=== PATIENT | female | born 1995 | race Caucasian/White ===

== ENCOUNTER 2018-06-26 22:57 | Inpatient (IN) ==
[2018-06-26] MEDS ORDERED: NS 1,000 ML IV ONE (23:09)
[2018-06-26] MEDS ORDERED: MORPHINE IV ONE (23:09)
[2018-06-26] MEDS ORDERED: ZOFRAN IV ONE (23:09)
[2018-06-26 23:43] LABS: BASO# 0.02 X1000 (0.0-0.2); BASO% 0.1 % (0.0-0.8); EOS# 0.04 X1000 (0.0-0.7); EOS% 0.2 % (0.0-10.0); HEMATOCRIT 34.9 % (37.0-47.0); HEMOGLOBIN 11.5 g/dL (12.0-16.0); LYMPH# 3.17 X1000 (1.2-3.4); LYMPH% 14.8 % (20.5-51.1); MCV 81.9 FL (81-99); MONO# 1.09 X1000 (0.11-0.59); MONO% 5.1 % (1.7-9.3); MPV 11.8 FL (7.4-10.4); NEUT# 17.16 X1000 (1.4-6.5); NEUT% 79.8 % (42.2-75.2); PLT 368 X1000 (130-400); RBC 4.26 XMIL (4.2-5.4); WBC 21.48 X1000 (4.8-10.8)
[2018-06-26 23:59] LABS: AGAP 16; ALB/GLOB RATIO 1.5; ALBUMIN 4.5 g/dL (3.5-5.0); ALKALINE PHOSPHATASE 68 U/L (32-104); BUN 20 mg/dL (8-22); CHLORIDE 101 mmol/L (98-107); COSMO 278; ESTIMATED GFR > 60; GLUCOSE 155 mg/dL (70-104); GOT 18 U/L (10-30); GPT 11 U/L (10-36); LIPASE 14 U/L (13-60); POTASSIUM 3.7 mmol/L (3.5-5.1); SODIUM 136 mmol/L (136-145); TCO2 19 mmol/L (25-35); TOTAL BILIRUBIN 0.73 mg/dL (0.20-1.00); TOTAL PROTEIN 7.6 g/dL (6.3-8.3)
[2018-06-27 00:06] LABS: URINE SOURCE CLEAN CATCH
[2018-06-27 00:14] LABS: BILIRUBIN URINE SMALL (NEGATIVE); BLOOD URINE NEGATIVE (NEGATIVE); COLOR YELLOW; GLUCOSE URINE NEGATIVE (NEGATIVE); KETONE URINE 20 mg/dL (NEGATIVE); LEUKOCYTES URINE LARGE (NEGATIVE); NITRITE URINE NEGATIVE (NEGATIVE); PROTEIN URINE 100 mg/dL (NEGATIVE); SP GRAVITY URINE > 1.050; TURBIDITY URINE HAZY (CLEAR); UR EPITHELIAL CELLS >10 /HPF (<10); URINE BACTERIA 2+ /HPF; UROBILINOGEN URINE 2 mg/dL (NORMAL)
[2018-06-27] MEDS ORDERED: MORPHINE IV ONE (01:26)
--- NOTE | 2018-06-27 02:30 | PROVIDER DOCUMENTATION ---
This chart was entered by Diana Byers Scribe, acting as scribe for Khai Rg MD. HPI-Abdominal Pain/GI Problem - General Chief Complaint: Abdominal Pain Stated Complaint: abdominal pain Time Seen by Provider: 06/26/18 23:01 Source: patient Allergies/Adverse Reactions: Patient Allergies Allergy/AdvReac Type Severity Reaction Status Date / Time No Known Allergies Allergy Verified 06/26/18 23:19 Home Medications: Home Medication List Medication Instructions Recorded Confirmed Last Taken Type Phentermine HCl [Adipex-P] 37.5 mg PO 06/26/18 06/26/18 15:00 History - History of Present Illness-ABD Nature of Presenting Problems: Pt is 22/F presenting to ED w/ lower abd pain that started last night and has gotten worse throughout today. She sts that she took advil and midol w/ little relief around 5:30 today. Pt sts that she has felt nauseous but had not vomited. Pt is in a significant amount of pain Abdominal Pain Onset Location: reports: periumbilical Pain Radiation: reports: back (R back) Quality of Pain: reports: aching Severity in ED: reports: severe Onset/Duration: reports: this evening Timing: reports: still present Activities at Onset: reports: none Exposure to sick contacts?: No Modifying Factors: improves with: nothing Associated Symptoms: reports: nausea. denies: cough, dizziness, fever/chills, vomiting Bruising or Bleeding Gums?: No Similar Symptoms Previously?: No Recently seen or treated by another doctor?: No Review of Systems - Adult - REVIEW OF SYSTEMS - ADULT Constitutional: denies: chills, fever Eyes: reports: no symptoms reported Ears, Nose, Mouth & Throat: reports: no symptoms reported Cardiovascular: reports: no symptoms reported. denies: chest pain Respiratory: reports: no symptoms reported. denies: cough Gastrointestinal: reports: abdominal pain, nausea. denies: diarrhea, vomiting Genitourinary: reports: no symptoms reported. denies: dysuria, flank pain, frequent UTI's Musculoskeletal: reports: back pain Integumentary: reports: no symptoms reported Neurological: reports: no symptoms reported. denies: dizziness/vertigo, headache/migraines Endocrine: reports: no symptoms reported Hematologic/Lymphatic: reports: no symptoms reported Allergic/Immunologic: reports: no symptoms reported All Other Systems: Reviewed and Negative Past History - Adult - PAST MEDICAL HISTORY-ADULT Review of Records: reports: Old Records Reviewed, Nursing Assessment Review, Medications Reviewed, Social history reviewed & non-contributory. Major Childhood Illnesses: reports: denies history Cardiovascular: reports: denies history Respiratory: reports: asthma Gastrointestinal: reports: denies history Obstetrical/Gynecological: reports: denies history Genitourinary: reports: denies history Musculoskeletal: reports: denies history Neurological: reports: denies history Psychiatric: reports: denies history Endocrine/Immune: reports: denies history Other Conditions: reports: denies history - PRIOR SURGERIES/PROCEDURES Surgical/Procedure History: reports: none - IMMUNIZATION STATUS Childhood Immunizations: UTD - SOCIAL HISTORY Smoking: denies, non-smoker Substance Use: none/never Alcohol Use Frequency: occasionally Living Situation: family Physical Exam-General - PHYSICAL EXAM-ADULT Initial Vital Signs Reviewed: Yes - CONSTITUTIONAL General Appearance: appears well, alert, moderate distress, anxious - EYES Eyes: PERRL/EOMI, pink conjunctivae - HEAD, EARS, NOSE, MOUTH & THROAT HENMT: normocephalic/atraumatic, moist mucous membranes, normal ENT inspection, TMs normal, pharynx normal - NECK Neck: non-tender, full range of motion, supple, normal inspection - RESPIRATORY Respiratory: lungs clear - CARDIOVASCULAR Cardiovascular: normal peripheral pulses, no edema, no gallop, no JVD, no murmur , tachycardia (143) - GASTROINTESTINAL (ABDOMEN) Abdominal Exam: normal bowel sounds, soft, guarding, rebound - LYMPHATIC Lymphatic: no adenopathy - MUSCULOSKELETAL Back Exam: normal inspection, no CVA tenderness, no vertebral tenderness Extremity: normal range of motion, non-tender, normal gait, normal inspection - SKIN Integumentary: normal color, warm/dry - NEUROLOGIC Neurologic: grossly normal - PSYCHIATRIC Psych/Mental Status: normal mood/affect, normal thought content, normal thought process, oriented x 3 Progress - PLAN OF CARE/RESULTS Progress/Plan/Lab Results: Orders Category Date Time Status ED: Urine Bedside ORDERED Care 06/26/18 23:[address] ABD/PELVIS W/IV CONT ONLY [CT] Stat Exams 06/26/18 23:09 Ordered CBC WITH ELECTRONIC DIFF [HEME] Stat Lab 06/26/18 23:08 Uncollected COMPREHENSIVE METABOLIC PANEL [CHEM] Stat Lab 06/26/18 23:08 Uncollected LACTATE, PLASMA [CHEM] Stat Lab 06/26/18 23:08 Uncollected LIPASE [CHEM] Stat Lab 06/26/18 23:08 Uncollected URINALYSIS [URINALYSIS] Stat Lab 06/26/18 23:08 Uncollected 0.9% Sodium Chloride Inj [Ns] 1,000 ml Med 06/26/18 23:09 Active IV 999 mls/hr Morphine Med 06/26/18 23:09 Discontinued 4 mg IV NOW ONE Ondansetron [Zofran] Med 06/26/18 23:09 Discontinued 4 mg IV NOW ONE EKG [EKG] Stat Ther 06/26/18 23:[address] shows hemoperitenium, spoke with OB, will admit to there service and get US Result Diagrams: 06/26/18 23:30 06/26/18 23:30 - EKG 1 Time of EKG reading by physician:: 23:03 EKG Read and Signed by:: Khai Rg EKG Interpretation (*Must complete 3 of following elements*): Abnormal (sinus tachycardia, Possible Left atrial enlargement, Rightward axis, Nonspecific ST abnormality, Abnormal ECG) Rate: 143 Rhythm: sinus tachycardia - CT/MRI 1 CT Study: Abdomen, Pelvis Impression: Abnormal (Ascites and pelvic hemoperitoneum of uncertain etiology. Pneumoperitoneum obscures the borders of the uterus and ovaries.) - CONSULTS/PCP/HOSPITALIST Notification #1 *Consult/PCP/Hospitalist*: Julian Time Discussed: 01:13 Reason/Comments: will see in ED Ultrasound requested Consult Disposition: Will see in ED Departure - Departure Date of Disposition Decision: 06/27/18 Time of Disposition Decision: 02:29 DIAGNOSIS: Hemoperitoneum Disposition: ADMITTED INPATIENT 09 Certified Medical Emergency: Emergent Condition: Stable Referrals and Follow-Ups: None,PCP [Primary Care Provider] - - Critical Care Note This patient required my direct & personal management of CC.: No Attestation - Physician/ ESTRADA Attestation Patient care was provided by Advanced Practice Provider:: No The physician spent face to face time with patient:: Yes Advanced Practice Provider documentation review:: Supervising physician onsite and consulted in the evaluation and care of this patient. The physician did have a face to face encounter with the patient. This chart was documented by the indicated scribe, (Diana Byers, Scribe) and accurately reflects the services I performed and decisions made by me, Khai Rg MD, as attested by the provider's signature.
[2018-06-27] MEDS ORDERED: SODIUM CHLORIDE 0.9% INJ PRN ×2 (02:54→04:33)
[2018-06-27] MEDS ORDERED: MORPHINE IV PRN ×2 (02:54→04:33)
[2018-06-27] MEDS ORDERED: PHENERGAN IV PRN ×2 (02:54→04:33)
[2018-06-27 03:06] LABS: BASO# 0.02 X1000 (0.0-0.2); BASO% 0.1 % (0.0-0.8); HEMATOCRIT 32.2 % (37.0-47.0); HEMOGLOBIN 10.5 g/dL (12.0-16.0); IMM GRAN# 0.04 X1000 (0.0-0.04); IMM GRAN% 0.2 % (0.0-0.5); LYMPH# 1.95 X1000 (1.2-3.4); LYMPH% 11.7 % (20.5-51.1); MCH 26.4 PG (27-31); MCHC 32.6 g/dL (33-37); MCV 80.9 FL (81-99); MONO# 0.83 X1000 (0.11-0.59); MPV 12.2 FL (7.4-10.4); NEUT# 13.81 X1000 (1.4-6.5); PLT 228 X1000 (130-400); RBC 3.98 XMIL (4.2-5.4); RDW 12.9 % (11.5-14.5); WBC 16.65 X1000 (4.8-10.8)
[2018-06-27] MEDS ORDERED: NS 1,000 ML IV ONE (03:44)
[2018-06-27] MEDS ORDERED: ROCEPHIN 1 GM in NS 50 ML IV SCH (04:12)
[2018-06-27] MEDS ORDERED: NS 1,000 ML IV SCH (04:45)
--- NOTE | 2018-06-27 05:24 | HISTORY AND PHYSICAL ---
HISTORY OF PRESENT ILLNESS: This is a 22-year-old, G0, who presents to the ER with lower pelvic pain that has been occurring since 4:30 a.m. on 06/26/2018. Onset was after patient and her partner were having sex. Pain worsened acutely last evening around 9 p.m. when she noted that the pain worsened to an 8 out of 10 in severity. Noted that the pain worsened when riding in the car upon hitting bumps. Denies any associated symptoms of nausea, vomiting, fever, chills, constipation or diarrhea. The patient notes that pain is worsened upon lying down flat and states that she has pain radiating to the right shoulder. REVIEW OF SYSTEMS: Negative except for the positive pertinent that were aforementioned in the HPI. OBSTETRICAL HISTORY: Never . GYNECOLOGIC HISTORY: LMP June 15-. Periods are normally regular, lasting 5 days. Prior to last week, patient was abstinent or 3 months with her partner deployed [employer]. Denies any history of any sexually transmitted infections. PAST MEDICAL HISTORY: The patient states she has had mild Arnold-Chiari malformation. Also notes a history of mild asthma, not requiring hospitalization and requiring the use of albuterol only a handful times. SURGICAL HISTORY: Oral surgery. SOCIAL HISTORY: Denies tobacco, alcohol, illicit drug use. ALLERGIES: No known drug allergies. MEDICATIONS: Adipex. PHYSICAL EXAMINATION: VITAL SIGNS: On presentation, temperature 98.5 degrees, pulse rate 145, respiratory rate 24, blood pressure 124/101, O2 saturation on room air. On evaluation, repeat vital signs at this time, the heart rate 95, respiratory rate 17. GENERAL: Patient appears uncomfortable, especially with movement. HEENT: Head normocephalic and atraumatic. HEART: Tachycardic, regular rhythm. No murmurs, rubs, gallops or clicks. LUNGS: Clear to auscultation bilaterally. No adventitious breath sounds. ABDOMEN: The abdomen soft, tender to palpation, worse on the left side than the right side. Normoactive bowel sounds. GENITOURINARY: Pelvis: No pain with manipulation of the ultrasonography vaginal probe. EXTREMITIES: No cyanosis, no edema. Negative Homans sign. LAB: CBC: White blood count 21.4, hemoglobin 11.5, hematocrit 34.9, platelets 368,000. Chemistry, creatinine 1.0. Urine test is negative. Serum less than 1. Urinalysis shows ketones, 10 to 20 white blood cells, urine red blood cells 10 to 20 and urine bacteria. A repeat lab CBC 3 hours later, repeat CBC, white blood count 16.6, hemoglobin 10.5, hematocrit 32.2, and platelet count 228,000. IMAGING: CT abdomen and pelvis showed what appears to be acute hemoperitoneum in the pelvis of uncertain etiology. Ultrasound showed heterogeneous debris measuring approximately 12 x 5 x 6 cm. ASSESSMENT: Ms. Castellanos is a 22-year-old, 0, who presents with pelvic pain secondary to hemoperitoneum. Differential diagnosis includes ruptured hemorrhagic cyst versus uterine injury. PLAN: Admit patient to observation for serial abdominal exams, close monitoring of vital signs and hemoglobin and hematocrit. We will repeat CBC 4 hours from the last CBC. CBC currently stable and vital signs stable. RN to alert physician in case of any signs of deterioration, decreased urine output, lowering blood pressure or increasing tachycardia. Morphine p.r.n. for pain control Consent signed with the patient for emergency surgery in case of acute deterioration. We will keep patient NPO for now. cc: Megan Jordan MD MTD
[2018-06-27] MEDS ORDERED: PRILOSEC PO SCH (07:00)
[2018-06-27 07:46] LABS: BASO# 0.01 X1000 (0.0-0.2); BASO% 0.1 % (0.0-0.8); EOS# 0.01 X1000 (0.0-0.7); EOS% 0.1 % (0.0-10.0); HEMATOCRIT 31.2 % (37.0-47.0); HEMOGLOBIN 9.9 g/dL (12.0-16.0); IMM GRAN# 0.03 X1000 (0.0-0.04); IMM GRAN% 0.2 % (0.0-0.5); LYMPH# 1.93 X1000 (1.2-3.4); LYMPH% 15.1 % (20.5-51.1); MCH 26.1 PG (27-31); MCHC 31.7 g/dL (33-37); MCV 82.3 FL (81-99); MONO# 0.77 X1000 (0.11-0.59); MPV 11.4 FL (7.4-10.4); NEUT# 10.05 X1000 (1.4-6.5); NEUT% 78.5 % (42.2-75.2); PLT 267 X1000 (130-400); RBC 3.79 XMIL (4.2-5.4); RDW 13.2 % (11.5-14.5)
--- NOTE | 2018-06-27 08:20 | Diag Imaging Result Doc PS360 ---
US TRANSVAGINAL NON-OB - 06/27/2018 INDICATION: hemoperitenium TECHNIQUE: COMPARISON: CT abdomen pelvis from earlier 06/27/2018 FINDINGS: There is extensive echogenic material most compatible with blood clot filling the pelvis. This measures 12.3 x 5.1 x 6.6 cm. There is also trace free fluid. The uterus measures 8.6 x 4.3 x 3.9 cm. Endometrial stripe thickness is 1.1 cm. No fluid in the endometrium. The ovaries are obscured. IMPRESSION: Large heterogeneous echogenic collection in the pelvis compatible with a large blood clot. EQUIPMENT MAINTENANCE ENGINEER consultation recommended. Electronically signed by Ibrahima Villarreal 06/27/2018 8:18 AM
--- NOTE | 2018-06-27 08:30 | Diag Imaging Result Doc PS360 ---
CT ABD/PELVIS W/IV CONT ONLY - 06/26/2018 INDICATION: colitis COMPARISON: None FINDINGS: The lung bases are clear and the heart size is normal. There is moderate abdominal and pelvic free fluid. The pelvis is filled with indistinct, heterogeneous hyperdense material. This measures about 11.5 x 9.4 cm. This encompasses the uterus and both ovaries. No bowel obstruction or free air. No active contrast extravasation. Abdominal organs are all normal. Bones are intact. IMPRESSION: Hyperdense collection all throughout the pelvis encompassing the reproductive organs. Most compatible with a large hematoma. Small to moderate abdominal and pelvic free fluid. GLAZE GRINDER consultation recommended. This exam was performed using automated exposure control, adjustment of mA or kV according to patient size, and/or use of iterative reconstruction technique Electronically signed by Ibrahima Villarreal 06/27/2018 8:28 AM
--- NOTE | 2018-06-27 09:18 | OB/GYN PROGRESS NOTE ---
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 Progress Note: Vital Signs - 24 hr 06/26/18 23:04 06/26/18 23:10 06/26/18 23:33 Temperature 98.5 F Pulse Rate 145 H 145 H 137 H Respiratory Rate 24 29 H 23 Blood Pressure 124/101 124/101 118/108 O2 Sat by Pulse Oximetry 100 100 99 06/26/18 23:50 06/27/18 00:01 06/27/18 00:31 Temperature Pulse Rate 134 H 121 H 118 H Respiratory Rate 18 18 23 Blood Pressure 124/94 118/100 115/82 O2 Sat by Pulse Oximetry 100 99 100 06/27/18 01:01 06/27/18 01:31 06/27/18 02:00 Temperature Pulse Rate 114 H 103 H 95 H Respiratory Rate 19 15 17 Blood Pressure 126/78 120/98 O2 Sat by Pulse Oximetry 100 100 96 06/27/18 02:01 06/27/18 02:10 06/27/18 04:21 Temperature 98.7 F Pulse Rate 100 H 109 H 81 Respiratory Rate 20 21 20 Blood Pressure 123/88 124/80 O2 Sat by Pulse Oximetry 99 97 99 06/27/18 05:00 06/27/18 06:00 06/27/18 07:00 Temperature Pulse Rate 85 89 79 Respiratory Rate Blood Pressure 127/74 123/74 125/82 O2 Sat by Pulse Oximetry 100 100 99 06/27/18 08:00 Temperature Pulse Rate 100 H Respiratory Rate Blood Pressure 127/77 O2 Sat by Pulse Oximetry 100 Bedside Urine ED: Urine Bedside Start: 06/26/18 23:08 Freq: ORDERED Status: Complete Protocol: Activity Type Activity Date Activity User E-Sign Co-Sign Detail Recorded Client Recorded Date Recorded By Document 06/26/18 23:53 [id number] 06/26/18 23:53 [id number] Edit Status 06/27/18 04:12 CRREESE Active=>Complete [id number] 06/27/18 04:12 [id number] 06/26/18 23:53 Point of Care [Bedside Point of Care] -Lot # [id number] - Results Negative -Control Line Visible? Yes Laboratory Results - last 24 hr 06/26/18 06/26/18 06/26/18 23:25 23:30 23:30 WBC 21.48 H RBC 4.26 Hgb 11.5 L Hct 34.9 L MCV 81.9 MCH 27.0 MCHC 33.0 RDW Std Deviation 13.0 Plt Count 368 MPV 11.8 H Immature Gran % (Auto) Neut % (Auto) 79.8 H Lymph % (Auto) 14.8 L Bennett % (Auto) 5.1 Eos % (Auto) 0.2 Baso % (Auto) 0.1 Immature Gran # (Auto) Neut # (Auto) 17.16 H Lymph # (Auto) 3.17 Bennett # (Auto) 1.09 H Eos # (Auto) 0.04 Baso # (Auto) 0.02 Sodium 136 Potassium 3.7 Chloride 101 Carbon Dioxide 19 L Anion Gap 16 BUN 20 Creatinine 1.0 H Estimated GFR/1.73 m2 > 60 BUN/Creatinine Ratio 20 Glucose 155 H Calculated Osmolality 278 Calcium 9.0 Total Bilirubin 0.73 AST 18 ALT 11 Alkaline Phosphatase 68 Total Protein 7.6 Albumin 4.5 Globulin 3.1 Albumin/Globulin Ratio 1.5 Lipase 14 Plasma Lactate Serum , Qual NEGATIVE Ser , Semi-Qnt Urine Source Urine Color Urine Turbidity Urine pH Ur Specific [place] Urine Protein Ur Glucose (Stick) Ur Ketones (Stick) Urine Blood Urine Nitrite Urine Bilirubin Urobilinogen Dipstick Urine Leukocytes Urine WBC (Auto) Urine RBC (Auto) U Epithel Cells (Auto) Urine Bacteria (Auto) Blood Type Antibody Screen 06/26/18 06/26/18 06/26/18 23:30 23:45 23:47 WBC RBC Hgb Hct MCV MCH MCHC RDW Std Deviation Plt Count MPV Immature Gran % (Auto) Neut % (Auto) Lymph % (Auto) Bennett % (Auto) Eos % (Auto) Baso % (Auto) Immature Gran # (Auto) Neut # (Auto) Lymph # (Auto) Bennett # (Auto) Eos # (Auto) Baso # (Auto) Sodium Potassium Chloride Carbon Dioxide Anion Gap BUN Creatinine Estimated GFR/1.73 m2 BUN/Creatinine Ratio Glucose Calculated Osmolality Calcium Total Bilirubin AST ALT Alkaline Phosphatase Total Protein Albumin Globulin Albumin/Globulin Ratio Lipase Plasma Lactate 4.1 H Serum , Qual Ser , Semi-Qnt < 1.0 Urine Source CLEAN CATCH Urine Color YELLOW Urine Turbidity HAZY Urine pH 6.0 Ur Specific [place] > 1.050 Urine Protein 100 A Ur Glucose (Stick) NEGATIVE Ur Ketones (Stick) 20 A Urine Blood NEGATIVE Urine Nitrite NEGATIVE Urine Bilirubin SMALL A Urobilinogen Dipstick 2 A Urine Leukocytes LARGE A Urine WBC (Auto) 10-20 A Urine RBC (Auto) 10-20 A U Epithel Cells (Auto) >10 A Urine Bacteria (Auto) 2+ Blood Type Antibody Screen 06/27/18 06/27/18 06/27/18 02:25 02:25 06:45 WBC 16.65 H 12.80 H RBC 3.98 L 3.79 L Hgb 10.5 L 9.9 L Hct 32.2 L 31.2 L MCV 80.9 L 82.3 MCH 26.4 L 26.1 L MCHC 32.6 L 31.7 L RDW Std Deviation 12.9 13.2 Plt Count 228 D 267 MPV 12.2 H 11.4 H Immature Gran % (Auto) 0.2 0.2 Neut % (Auto) 83.0 H 78.5 H Lymph % (Auto) 11.7 L 15.1 L Bennett % (Auto) 5.0 6.0 Eos % (Auto) 0.0 0.1 Baso % (Auto) 0.1 0.1 Immature Gran # (Auto) 0.04 0.03 Neut # (Auto) 13.81 H 10.05 H Lymph # (Auto) 1.95 1.93 Bennett # (Auto) 0.83 H 0.77 H Eos # (Auto) 0.00 0.01 Baso # (Auto) 0.02 0.01 Sodium Potassium Chloride Carbon Dioxide Anion Gap BUN Creatinine Estimated GFR/1.73 m2 BUN/Creatinine Ratio Glucose Calculated Osmolality Calcium Total Bilirubin AST ALT Alkaline Phosphatase Total Protein Albumin Globulin Albumin/Globulin Ratio Lipase Plasma Lactate Serum , Qual Ser , Semi-Qnt Urine Source Urine Color Urine Turbidity Urine pH Ur Specific [place] Urine Protein Ur Glucose (Stick) Ur Ketones (Stick) Urine Blood Urine Nitrite Urine Bilirubin Urobilinogen Dipstick Urine Leukocytes Urine WBC (Auto) Urine RBC (Auto) U Epithel Cells (Auto) Urine Bacteria (Auto) Blood Type A NEGATIVE Antibody Screen NEGATIVE 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 She has not had any Morphine since transfer from the ER. Reported nausea around 0530 and received Promethazine with improvement of her symptoms. Vital Signs: Selected Entries 06/27/18 05:00 06/27/18 06:00 06/27/18 07:00 Pulse Rate 85 89 79 Blood Pressure 127/74 123/74 125/82 O2 Sat by Pulse Oximetry 100 99 Mean Arterial Pressure 91 06/27/18 08:00 Pulse Rate 100 H Blood Pressure 127/77 O2 Sat by Pulse Oximetry 100 Mean Arterial Pressure GEN: NAD, alert, cooperative Heart: Slightly tachycardic, normal rhythm Lungs: CTAB Abdomen: Soft, normoactive bowel sounds, slightly tender to deep palpation of lower abdomen Extremities: No cyanosis, NTTP 06/26/18 06/26/18 06/26/18 23:30 23:30 23:47 WBC 21.48 H Hgb 11.5 L Hct 34.9 L Plt Count 368 Sodium 136 Carbon Dioxide 19 L Creatinine 1.0 H Urine Protein 100 A Ur Ketones (Stick) 20 A Urine Bilirubin SMALL A Urobilinogen Dipstick 2 A Urine Leukocytes LARGE A Urine WBC (Auto) 10-20 A Urine RBC (Auto) 10-20 A U Epithel Cells (Auto) >10 A Urine Bacteria (Auto) 2+ 06/27/18 06/27/18 02:25 06:45 WBC 16.65 H 12.80 H Hgb 10.5 L 9.9 L Hct 32.2 L 31.2 L Plt Count 228 D 267 Sodium Carbon Dioxide Creatinine Urine Protein Ur Ketones (Stick) Urine Bilirubin Urobilinogen Dipstick Urine Leukocytes Urine WBC (Auto) Urine RBC (Auto) U Epithel Cells (Auto) Urine Bacteria (Auto) 22yo G0 admitted with hemoperitoneum, pelvic pain, leukocytosis, UTI mild anemia 1. Hemoperitoneum, pelvic pain, mild anemia - VSS - Discussed with patient slight drop in H&H on third CBC (likely secondary to hemodilution as both WBC and platelets have also dropped) and how this in conjunction with stable vital signs and decreased pain indicate stability in hemoperitoneum; however, I discussed with patient how blood clot will persist for several weeks and cause peritoneal irritation and pain and proceeding to the OR to clear out clot and ensure that bleeding has stopped is also an alternative treatment. Due to the risks associated with surgery and she feels she has clinically has improved, at this time she prefers observation. She will decline pain medications to see if her pain is tolerable without them, and we will revisit her symptoms in 6 hours. - Repeat CBC at 1400 - Will also repeat pelvic ultrasound to ensure hemoperitoneum is stable - Continue clear liquid diet 2. Leukocytosis, UTI - S/p Rocephin x 1 dose - Will initiate Macrobid x 3 days on tomorrow
[2018-06-27 13:43] LABS: BASO# 0.01 X1000 (0.0-0.2); BASO% 0.1 % (0.0-0.8); EOS# 0.05 X1000 (0.0-0.7); EOS% 0.6 % (0.0-10.0); HEMATOCRIT 25.7 % (37.0-47.0); HEMOGLOBIN 8.1 g/dL (12.0-16.0); LYMPH# 2.69 X1000 (1.2-3.4); LYMPH% 32.2 % (20.5-51.1); MCH 26.9 PG (27-31); MCHC 31.5 g/dL (33-37); MCV 85.4 FL (81-99); MONO# 0.71 X1000 (0.11-0.59); MONO% 8.5 % (1.7-9.3); MPV 11.1 FL (7.4-10.4); NEUT# 4.89 X1000 (1.4-6.5); NEUT% 58.6 % (42.2-75.2); PLT 208 X1000 (130-400); RBC 3.01 XMIL (4.2-5.4); RDW 13.1 % (11.5-14.5); WBC 8.35 X1000 (4.8-10.8)
--- NOTE | 2018-06-27 14:51 | OB/GYN PROGRESS NOTE ---
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 Progress Note: Vital Signs - 24 hr 06/26/18 23:04 06/26/18 23:10 06/26/18 23:33 Temperature 98.5 F Pulse Rate 145 H 145 H 137 H Respiratory Rate 24 29 H 23 Blood Pressure 124/101 124/101 118/108 O2 Sat by Pulse Oximetry 100 100 99 06/26/18 23:50 06/27/18 00:01 06/27/18 00:31 Temperature Pulse Rate 134 H 121 H 118 H Respiratory Rate 18 18 23 Blood Pressure 124/94 118/100 115/82 O2 Sat by Pulse Oximetry 100 99 100 06/27/18 01:01 06/27/18 01:31 06/27/18 02:00 Temperature Pulse Rate 114 H 103 H 95 H Respiratory Rate 19 15 17 Blood Pressure 126/78 120/98 O2 Sat by Pulse Oximetry 100 100 96 06/27/18 02:01 06/27/18 02:10 06/27/18 04:21 Temperature 98.7 F Pulse Rate 100 H 109 H 81 Respiratory Rate 20 21 20 Blood Pressure 123/88 124/80 O2 Sat by Pulse Oximetry 99 97 99 06/27/18 05:00 06/27/18 06:00 06/27/18 07:00 Temperature Pulse Rate 85 89 79 Respiratory Rate Blood Pressure 127/74 123/74 125/82 O2 Sat by Pulse Oximetry 100 100 99 06/27/18 08:00 06/27/18 11:11 Temperature 98.3 F Pulse Rate 100 H 75 Respiratory Rate 16 Blood Pressure 127/77 101/69 O2 Sat by Pulse Oximetry 100 100 Bedside Urine ED: Urine Bedside Start: 06/26/18 23:08 Freq: ORDERED Status: Complete Protocol: Activity Type Activity Date Activity User E-Sign Co-Sign Detail Recorded Client Recorded Date Recorded By Document 06/26/18 23:53 [id number] 06/26/18 23:53 [id number] Edit Status 06/27/18 04:12 CRREESE Active=>Complete [id number] 06/27/18 04:12 [id number] 06/26/18 23:53 Point of Care [Bedside Point of Care] -Lot # [id number] - Results Negative -Control Line Visible? Yes Laboratory Results - last 24 hr 06/26/18 06/26/18 06/26/18 23:25 23:30 23:30 WBC 21.48 H RBC 4.26 Hgb 11.5 L Hct 34.9 L MCV 81.9 MCH 27.0 MCHC 33.0 RDW Std Deviation 13.0 Plt Count 368 MPV 11.8 H Immature Gran % (Auto) Neut % (Auto) 79.8 H Lymph % (Auto) 14.8 L [place] % (Auto) 5.1 Eos % (Auto) 0.2 Baso % (Auto) 0.1 Immature Gran # (Auto) Neut # (Auto) 17.16 H Lymph # (Auto) 3.17 [place] # (Auto) 1.09 H Eos # (Auto) 0.04 Baso # (Auto) 0.02 Sodium 136 Potassium 3.7 Chloride 101 Carbon Dioxide 19 L Anion Gap 16 BUN 20 Creatinine 1.0 H Estimated GFR/1.73 m2 > 60 BUN/Creatinine Ratio 20 Glucose 155 H Calculated Osmolality 278 Calcium 9.0 Total Bilirubin 0.73 AST 18 ALT 11 Alkaline Phosphatase 68 Total Protein 7.6 Albumin 4.5 Globulin 3.1 Albumin/Globulin Ratio 1.5 Lipase 14 Plasma Lactate Serum , Qual NEGATIVE Ser , Semi-Qnt Urine Source Urine Color Urine Turbidity Urine pH Ur Specific [place] Urine Protein Ur Glucose (Stick) Ur Ketones (Stick) Urine Blood Urine Nitrite Urine Bilirubin Urobilinogen Dipstick Urine Leukocytes Urine WBC (Auto) Urine RBC (Auto) U Epithel Cells (Auto) Urine Bacteria (Auto) Blood Type Antibody Screen 06/26/18 06/26/18 06/26/18 23:30 23:45 23:47 WBC RBC Hgb Hct MCV MCH MCHC RDW Std Deviation Plt Count MPV Immature Gran % (Auto) Neut % (Auto) Lymph % (Auto) [place] % (Auto) Eos % (Auto) Baso % (Auto) Immature Gran # (Auto) Neut # (Auto) Lymph # (Auto) [place] # (Auto) Eos # (Auto) Baso # (Auto) Sodium Potassium Chloride Carbon Dioxide Anion Gap BUN Creatinine Estimated GFR/1.73 m2 BUN/Creatinine Ratio Glucose Calculated Osmolality Calcium Total Bilirubin AST ALT Alkaline Phosphatase Total Protein Albumin Globulin Albumin/Globulin Ratio Lipase Plasma Lactate 4.1 H Serum , Qual Ser , Semi-Qnt < 1.0 Urine Source CLEAN CATCH Urine Color YELLOW Urine Turbidity HAZY Urine pH 6.0 Ur Specific [place] > 1.050 Urine Protein 100 A Ur Glucose (Stick) NEGATIVE Ur Ketones (Stick) 20 A Urine Blood NEGATIVE Urine Nitrite NEGATIVE Urine Bilirubin SMALL A Urobilinogen Dipstick 2 A Urine Leukocytes LARGE A Urine WBC (Auto) 10-20 A Urine RBC (Auto) 10-20 A U Epithel Cells (Auto) >10 A Urine Bacteria (Auto) 2+ Blood Type Antibody Screen 06/27/18 06/27/18 06/27/18 02:25 02:25 06:45 WBC 16.65 H 12.80 H RBC 3.98 L 3.79 L Hgb 10.5 L 9.9 L Hct 32.2 L 31.2 L MCV 80.9 L 82.3 MCH 26.4 L 26.1 L MCHC 32.6 L 31.7 L RDW Std Deviation 12.9 13.2 Plt Count 228 D 267 MPV 12.2 H 11.4 H Immature Gran % (Auto) 0.2 0.2 Neut % (Auto) 83.0 H 78.5 H Lymph % (Auto) 11.7 L 15.1 L [place] % (Auto) 5.0 6.0 Eos % (Auto) 0.0 0.1 Baso % (Auto) 0.1 0.1 Immature Gran # (Auto) 0.04 0.03 Neut # (Auto) 13.81 H 10.05 H Lymph # (Auto) 1.95 1.93 [place] # (Auto) 0.83 H 0.77 H Eos # (Auto) 0.00 0.01 Baso # (Auto) 0.02 0.01 Sodium Potassium Chloride Carbon Dioxide Anion Gap BUN Creatinine Estimated GFR/1.73 m2 BUN/Creatinine Ratio Glucose Calculated Osmolality Calcium Total Bilirubin AST ALT Alkaline Phosphatase Total Protein Albumin Globulin Albumin/Globulin Ratio Lipase Plasma Lactate Serum , Qual Ser , Semi-Qnt Urine Source Urine Color Urine Turbidity Urine pH Ur Specific [place] Urine Protein Ur Glucose (Stick) Ur Ketones (Stick) Urine Blood Urine Nitrite Urine Bilirubin Urobilinogen Dipstick Urine Leukocytes Urine WBC (Auto) Urine RBC (Auto) U Epithel Cells (Auto) Urine Bacteria (Auto) Blood Type A NEGATIVE Antibody Screen NEGATIVE 06/27/18 13:00 WBC 8.35 RBC 3.01 L Hgb 8.1 L D Hct 25.7 L MCV 85.4 MCH 26.9 L MCHC 31.5 L RDW Std Deviation 13.1 Plt Count 208 MPV 11.1 H Immature Gran % (Auto) Neut % (Auto) 58.6 Lymph % (Auto) 32.2 [place] % (Auto) 8.5 Eos % (Auto) 0.6 Baso % (Auto) 0.1 Immature Gran # (Auto) Neut # (Auto) 4.89 Lymph # (Auto) 2.69 [place] # (Auto) 0.71 H Eos # (Auto) 0.05 Baso # (Auto) 0.01 Sodium Potassium Chloride Carbon Dioxide Anion Gap BUN Creatinine Estimated GFR/1.73 m2 BUN/Creatinine Ratio Glucose Calculated Osmolality Calcium Total Bilirubin AST ALT Alkaline Phosphatase Total Protein Albumin Globulin Albumin/Globulin Ratio Lipase Plasma Lactate Serum , Qual Ser , Semi-Qnt Urine Source Urine Color Urine Turbidity Urine pH Ur Specific [place] Urine Protein Ur Glucose (Stick) Ur Ketones (Stick) Urine Blood Urine Nitrite Urine Bilirubin Urobilinogen Dipstick Urine Leukocytes Urine WBC (Auto) Urine RBC (Auto) U Epithel Cells (Auto) Urine Bacteria (Auto) Blood Type Antibody Screen 22yo G0 admitted with hemoperitoneum, pelvic pain, UTI, anemia Patient states her is slightly worse but still bearable. Vitals signs as above Labs as above 1. Hemoperitoneum, pelvic pain, anemia - VSS - Discussed with patient results of latest CBC an recommended proceeding with surgery given worsening pain and drop in H&H. She is amenable to recommendation and reconfirms consent that what given last night. - Will proceed to OR for diagnostic laparoscopy vs. exploratory laparotomy, evaluation of bleeding structures, any other indicated procedures. - Nurse slot floor supervisor called, and she will call in the OR team. - Patient crossmatched for 2 units
--- NOTE | 2018-06-27 15:01 | H&P REVIEW ---
H&P Update Document any changes: Patient's CBC has showed a decrease in HgB from serial CBCs on today now down to 8.1. Due to decrease, recommended proceeding to surgery at this time. Patient amenable. Patient counseled on risks and benefits of surgery. Risks include bleeding, infection, injury to the surrounding structures (bowel, bladder), need for further procedures. Benefits include identification and hemostasis of bleeding, less pain.
[2018-06-27] MEDS ORDERED: DECADRON ONE (15:06)
[2018-06-27] MEDS ORDERED: ROBINUL ONE ×2 (15:06→15:07)
[2018-06-27] MEDS ORDERED: ZOFRAN ONE (15:06)
[2018-06-27] MEDS ORDERED: DIPRIVAN 1% ONE (15:06)
[2018-06-27] MEDS ORDERED: FENTANYL ONE (15:06)
[2018-06-27] MEDS ORDERED: XYLOCAINE-MPF 2% ONE (15:06)
[2018-06-27] MEDS ORDERED: QUELICIN (DOSE) ONE (15:07)
[2018-06-27] MEDS ORDERED: ZEMURON ONE ×2 (15:19→17:20)
[2018-06-27] MEDS ORDERED: VERSED ONE (15:45)
[2018-06-27] MEDS ORDERED: PEPCID ONE (15:46)
[2018-06-27] MEDS ORDERED: SENSORCAINE-MPF 0.5%/EPI 1:200,000 ONE (15:57)
[2018-06-27] MEDS ORDERED: LR 1,000 ML ONE (15:57)
[2018-06-27 16:36] LABS: INR 1.25; PROTIME 16.7 Seconds (11.0-16.0); PTT 32.4 Seconds (22.3-41.8)
[2018-06-27 17:06] LABS: URINE SOURCE CATH
[2018-06-27 17:18] LABS: BILIRUBIN URINE NEGATIVE (NEGATIVE); BLOOD URINE NEGATIVE (NEGATIVE); COLOR ORANGE; GLUCOSE URINE NEGATIVE (NEGATIVE); KETONE URINE 10 mg/dL (NEGATIVE); LEUKOCYTES URINE NEGATIVE (NEGATIVE); NITRITE URINE NEGATIVE (NEGATIVE); PH URINE 5.5; PROTEIN URINE TRACE mg/dL (NEGATIVE); SP GRAVITY URINE 1.038; TURBIDITY URINE TURBID (CLEAR); UROBILINOGEN URINE NORMAL (NORMAL)
[2018-06-27 17:20] LABS: UR EPITHELIAL CELLS <10 /HPF (<10); URINE BACTERIA NEGATIVE /HPF; URINE RBC <10 /HPF (<10); URINE WBC <10 /HPF (<10)
[2018-06-27] MEDS ORDERED: OFIRMEV 1000 MG/ISOTONIC SOLN 1,000 MG/100 ML BOTTLE ONE (18:02)
[2018-06-27] MEDS ORDERED: SODIUM CHLORIDE 0.9% 10 ML ONE (18:11)
[2018-06-27] MEDS ORDERED: SILVER NITRATE APPLICATOR ONE (18:14)
[2018-06-27] MEDS ORDERED: NEOSTIGMINE ONE ×2 (18:14→18:15)
[2018-06-27] MEDS ORDERED: DILAUDID ONE ×2 (18:24→19:01)
[2018-06-27 19:00] LABS: BASO# 0.04 X1000 (0.0-0.2); BASO% 0.2 % (0.0-0.8); EOS# 0.07 X1000 (0.0-0.7); EOS% 0.4 % (0.0-10.0); HEMOGLOBIN 9.7 g/dL (12.0-16.0); IMM GRAN# 0.12 X1000 (0.0-0.04); IMM GRAN% 0.7 % (0.0-0.5); LYMPH# 2.02 X1000 (1.2-3.4); MCHC 32.3 g/dL (33-37); MCV 86.7 FL (81-99); MONO# 0.69 X1000 (0.11-0.59); MONO% 3.8 % (1.7-9.3); MPV 11.3 FL (7.4-10.4); NEUT# 15.38 X1000 (1.4-6.5); NEUT% 83.9 % (42.2-75.2); PLT 205 X1000 (130-400); RBC 3.46 XMIL (4.2-5.4); RDW 13.6 % (11.5-14.5); WBC 18.32 X1000 (4.8-10.8)
[2018-06-27] MEDS ORDERED: LR 1,000 ML IV SCH (19:00)
[2018-06-27] MEDS ORDERED: NARCAN IV PRN (19:00)
[2018-06-27] MEDS ORDERED: DILAUDID PCA VIAL IV PRN (19:00)
--- NOTE | 2018-06-27 19:54 | OPERATIVE NOTE ---
DATE OF CONSULTATION: 06/27/2018 Ms. Mary Anne Castellanos is a 22-year-old white female who presented to the emergency department late last night with a 24 hour history of abdominal pain. A CT scan was performed because of her abdominal pain and elevated white blood cell count. Her presenting hematocrit was 34%. The CT scan documented hemoperitoneum mostly in the pelvis. She was admitted and this afternoon it was decided by Dr. Megan Jordan to bring her to the operating room because of her hemoperitoneum. The operation was begun with her in stirrups and a 5 mm port but was converted to an open procedure through a Pfannenstiel incision. The hematoma was evacuated from the pelvis but there was a question of the origin of the bleeding and whether there was ongoing bleeding and I was asked to come into the operating room for an opinion. We placed the patient in steep Trendelenburg and packed the bowel out of the pelvis and looked at the contents of the pelvis closely. The ovaries appeared to be normal as did the uterus. There was some superficial abrasions to the right fallopian tube but there was no active bleeding in the pelvis. I took time to use warm irrigation and irrigated all 4 quadrants of the abdomen although it was through the Pfannenstiel incision and that fluid was removed with suction and I did not feel that there was any significant ongoing bleeding. I looked at the greater omentum and there did not appear to be bleeding from it. I felt that we ought to close this Pfannenstiel incision which Dr. Jordan and Danni did and then I placed a 5 mm trocar and reestablished the pneumoperitoneum and used a 5 mm camera to again explore the abdomen. There was no evidence of ongoing bleeding with the camera. The liver appeared to be normal without injury. There was no bleeding around the spleen. The stomach was decompressed. The gallbladder appeared to be normal. The surface of the bowel also appeared to be normal and she had a thin omentum without evidence of active bleeding. There was no new bleeding in the pelvis. I felt that they had successfully evacuated the hemoperitoneum and we could not find any evidence of ongoing bleeding and we stopped the procedure. The patient will go to the recovery room and then return to the floor. She did have a Robin catheter tube in. I believe she received at least 1 unit of packed red blood cells during the procedure. She did remain hemodynamically stable throughout surgery. cc: MD Megan Birmingham MD
[2018-06-27] MEDS ORDERED: ZOFRAN IV PRN (20:01)
--- NOTE | 2018-06-27 20:53 | OPERATIVE NOTE ---
PROCEDURE DATE: 06/27/2018 PREOPERATIVE DIAGNOSES: 1. Hemoperitoneum. 2. Anemia. 3. Ruptured hemorrhagic cyst. POSTOPERATIVE DIAGNOSES: 1. Hemoperitoneum. 2. Anemia. OPERATION: Diagnostic laparoscopy, exploratory laparotomy. ANESTHESIA: General. SURGEON: Megan Jordan MD OXIDATION OPERATOR SURGEON: Andry Razo III, MD CONSULTING SURGEON: Mauricio Stevens MD ESTIMATED BLOOD LOSS: 1200 mL DRAINS: Robin. SPECIMENS: None. COMPLICATIONS: None. FINDINGS: On speculum exam, normal-appearing cervix with ectropion. No abnormal vaginal discharge or vaginal bleeding. Intraoperative findings: On diagnostic laparoscopy, large amount of hemoperitoneum visualized on entrance into the abdomen. Exploratory laparotomy findings: Normal-appearing uterus, fallopian tubes and bilateral ovaries. Small cyst with minimal oozing on the right ovary noted. Repeat laparoscopy: Intra-abdominal survey with no signs of active brisk bleeding. PROCEDURE: The risks, benefits, complications, treatment options and expected outcomes were discussed with the patient. The patient concurred with the proposed plan, giving informed consent. The patient was taken to operating room #3, identified as Mary Anne Castellanos. The procedure was verified as diagnostic laparoscopy or exploratory laparotomy and all other indicated procedures. Time-out was held and the above information confirmed. The patient was placed in supine position and underwent induction of anesthesia. Following this, was placed in the dorsal lithotomy position, and the patient had a Robin placed. The patient was subsequently prepped and draped in the usual sterile manner. A speculum was placed in the vagina. A tenaculum was placed on the anterior cervical lip. The cervix was dilated serially with Hegar dilators, and a Zumi uterine manipulator was inserted into the uterine cavity. A small incision was placed into the bellybutton and a Veress needle was placed through that incision, confirming intra-abdominal pressure that was less than 10, and then the abdomen was insufflated to a pressure of 15mmHg. The Veress needle was removed and an Optiview 5 mm trocar was used to insert the 0-degree 5 mm scope through the umbilical incision. Upon entrance of the abdomen, it was noted that there was a large volume of hemoperitoneum, so the decision to convert to an exploratory laparotomy was made. A Pfannenstiel incision was made using the scalpel and carried through the subcutaneous tissue to the fascia with the Bovie. Fascial incision was made, extended laterally and dissected superiorly and inferiorly from the rectus muscle. Rectus muscles were and the peritoneum was identified and entered. A large amount of clot and blood were evacuated from the abdominal incision. The peritoneal incision was extended longitudinally using the Bovie as well as Metzenbaum and Rueda scissors. The above findings were noted. Moist tack laps were used to pack the bowel out of the operating field, and the O'Shahid-O'Downing retractor was used to retract. Lenore clamps were used to elevate the fallopian tubes, ovaries and the uterus to evaluate for bleeding. Only the small area on the right ovary was noted as actively oozing. Due to the fact that there was minor oozing, the decision to call in General Surgery to evaluate for possible other sources of bleeding was made. Please see Dr. Stevens's note on his part of the procedure. The small area on the right ovary was made hemostatic with Bovie, as well as a small area on the right fallopian tube that was traumatized by the [place] clamp. After Dr. Stevens was finished with his initial evaluation of the abdomen, he decided to use the previous port incision to reevaluate the upper abdomen with laparoscopy, so the peritoneum was closed using 2-0 Vicryl in a running fashion. The fascia was closed from both angles using 0 Vicryl. The skin was closed with monique. Then Dr. Stevens then performed another laparoscopic evaluation with the above findings noted, and subsequently closed the 5 mm umbilical port site with 4-0 Monocryl. A pressure dressing was placed across the Pfannenstiel incision. Instrument, sponge, and needle counts were correct prior to abdominal closure and at the conclusion of the case. cc: MD ABDIAS Watson
[2018-06-27] MEDS ORDERED: PERIDEX MT SCH (21:00)
--- NOTE | 2018-06-28 08:47 | PROGRESS NOTE ---
DATE: 06/28/2018 Ms. Mary Anne Castellanos is now postop day 1 from exploratory laparotomy for pelvic bleeding. It was felt that her bleeding was gynecological in origin. This morning, she is awake and cooperative. She looks slightly pale. Her pain is satisfactorily controlled with a pain pump. Her heart rate is 82, blood pressure 126/73, O2 saturation is 100%, and she is afebrile. Her hematocrit is stable at 30%. Her Pfannenstiel incision is dressed. Her abdomen is slightly distended but not tightly so. She has been allowed ice chips and sips of water. She has a Robin catheter tube in place. There was no clinical evidence of ongoing bleeding. Further orders per the gynecological team. cc: MD Megan Birmingham MD
--- NOTE | 2018-06-28 09:16 | OB/GYN PROGRESS NOTE ---
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 Progress Note: Vital Signs - 24 hr 06/27/18 11:11 06/27/18 15:43 06/27/18 17:24 Temperature 98.3 F 98.3 F 97.5 F L Pulse Rate 75 75 104 H Respiratory Rate 16 16 10 L Blood Pressure 101/69 101/69 124/76 Blood Pressure [Left Arm] O2 Sat by Pulse Oximetry 100 99 06/27/18 18:30 06/27/18 18:40 06/27/18 18:50 Temperature 97.4 F L Pulse Rate 86 96 H 91 H Respiratory Rate 12 16 15 Blood Pressure 101/69 Blood Pressure [Left Arm] 126/82 132/88 151/84 O2 Sat by Pulse Oximetry 100 94 L 100 06/27/18 19:00 06/27/18 19:10 06/27/18 19:20 Temperature Pulse Rate 108 H 65 64 Respiratory Rate 17 10 L 14 Blood Pressure Blood Pressure [Left Arm] 138/99 118/76 122/71 O2 Sat by Pulse Oximetry 100 100 100 06/27/18 19:34 06/27/18 19:40 06/27/18 19:45 Temperature 97.7 F Pulse Rate 75 80 64 Respiratory Rate 12 16 Blood Pressure 125/64 114/53 Blood Pressure [Left Arm] O2 Sat by Pulse Oximetry 100 06/27/18 19:52 06/27/18 20:00 06/27/18 21:00 Temperature Pulse Rate 72 77 80 Respiratory Rate Blood Pressure 125/64 123/55 118/53 Blood Pressure [Left Arm] O2 Sat by Pulse Oximetry 100 100 99 06/27/18 21:15 06/27/18 21:30 06/27/18 22:00 Temperature Pulse Rate 75 76 82 Respiratory Rate Blood Pressure 116/54 127/64 107/53 Blood Pressure [Left Arm] O2 Sat by Pulse Oximetry 100 97 98 06/27/18 22:30 06/27/18 23:00 06/28/18 00:00 Temperature Pulse Rate 78 93 H 75 Respiratory Rate Blood Pressure 112/56 121/73 115/60 Blood Pressure [Left Arm] O2 Sat by Pulse Oximetry 98 97 95 06/28/18 01:00 06/28/18 02:00 06/28/18 03:00 Temperature 98.2 F Pulse Rate 86 68 68 Respiratory Rate 12 Blood Pressure 112/62 112/55 112/55 Blood Pressure [Left Arm] O2 Sat by Pulse Oximetry 100 100 100 06/28/18 07:41 Temperature 98.5 F Pulse Rate 82 Respiratory Rate 16 Blood Pressure 126/73 Blood Pressure [Left Arm] O2 Sat by Pulse Oximetry 100 Bedside Urine ED: Urine Bedside Start: 06/26/18 23:08 Freq: ORDERED Status: Complete Protocol: Activity Type Activity Date Activity User E-Sign Co-Sign Detail Recorded Client Recorded Date Recorded By Document 06/26/18 23:53 [id number] 06/26/18 23:53 [id number] Edit Status 06/27/18 04:12 CRREESE Active=>Complete [id number] 06/27/18 04:12 [id number] 06/26/18 23:53 Point of Care [Bedside Point of Care] -Lot # [id number] - Results Negative -Control Line Visible? Yes Laboratory Results - last 24 hr 06/27/18 06/27/18 06/27/18 02:25 13:00 16:23 WBC 8.35 RBC 3.01 L Hgb 8.1 L D Hct 25.7 L MCV 85.4 MCH 26.9 L MCHC 31.5 L RDW Std Deviation 13.1 Plt Count 208 MPV 11.1 H Immature Gran % (Auto) Neut % (Auto) 58.6 Lymph % (Auto) 32.2 [place] % (Auto) 8.5 Eos % (Auto) 0.6 Baso % (Auto) 0.1 Immature Gran # (Auto) Neut # (Auto) 4.89 Lymph # (Auto) 2.69 [place] # (Auto) 0.71 H Eos # (Auto) 0.05 Baso # (Auto) 0.01 PT 16.7 H INR 1.25 PTT (Actin FS) 32.4 Fibrinogen 298.0 Urine Source Urine Color Urine Turbidity Urine pH Ur Specific [place] Urine Protein Ur Glucose (Stick) Ur Ketones (Stick) Urine Blood Urine Nitrite Urine Bilirubin Urobilinogen Dipstick Urine Leukocytes Urine WBC (Auto) Urine RBC (Auto) U Epithel Cells (Auto) Urine Bacteria (Auto) Blood Type A NEGATIVE Antibody Screen NEGATIVE Crossmatch See Detail 06/27/18 06/27/18 17:03 18:57 WBC 18.32 H D RBC 3.46 L Hgb 9.7 L D Hct 30.0 L MCV 86.7 MCH 28.0 MCHC 32.3 L RDW Std Deviation 13.6 Plt Count 205 MPV 11.3 H Immature Gran % (Auto) 0.7 H Neut % (Auto) 83.9 H Lymph % (Auto) 11.0 L [place] % (Auto) 3.8 Eos % (Auto) 0.4 Baso % (Auto) 0.2 Immature Gran # (Auto) 0.12 H Neut # (Auto) 15.38 H Lymph # (Auto) 2.02 [place] # (Auto) 0.69 H Eos # (Auto) 0.07 Baso # (Auto) 0.04 PT INR PTT (Actin FS) Fibrinogen Urine Source CATH Urine Color ORANGE Urine Turbidity TURBID Urine pH 5.5 Ur Specific [place] 1.038 Urine Protein TRACE A Ur Glucose (Stick) NEGATIVE Ur Ketones (Stick) 10 A Urine Blood NEGATIVE Urine Nitrite NEGATIVE Urine Bilirubin NEGATIVE Urobilinogen Dipstick NORMAL Urine Leukocytes NEGATIVE Urine WBC (Auto) <10 Urine RBC (Auto) <10 U Epithel Cells (Auto) <10 Urine Bacteria (Auto) NEGATIVE Blood Type Antibody Screen Crossmatch 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 Only notes slight right shoulder pain with some deep inspirations but not all. Denies N/V, fever, chills, leg pain, vaginal bleeding. [place] is still in. She has not eaten or ambulated. She is using her incentive spirometry. Vital signs listed above GEN: NAD, sitting up in bed comfortably HEART: RRR, no MRG or clicks LUNGS: CTAB, no adventitious breath sounds. ABDOMEN: Normoactive bowel sounds, bandage is clean and dry, abdomen soft and appropriately tender PELVIS: [place] still in, no blood noted at the perineum EXTREMITIES: No cyanosis or swelling noted, negative Jerry's sign LABS: As above Assessment: 22yo G0 admitted with hemoperitoneum, HD #2, POD #1 s/p ex lap, EBL 1200 mL; anemia Plan: 1. Routine postop care - D/c RECOVERY OPERATOR HELPER, transition to Ibuprofen 800mg TID and Percocet 5/325 1 tab q4hr PRN for pain scale 5-7, and 2 tab for pain scale 7-10 - D/c holland - Ambulate TID - Advance diet to regular diet as tolerated - Encouraged IS - All questions about procedure and postop care answered. - Will return to remove bandage 24 hours postop 2. Anemia - Initiate Iron 325mg daily
[2018-06-28] MEDS: ZOFRAN ODT PO PRN (09:23)
[2018-06-28] MEDS: FERROUS SULFATE PO SCH (09:24)
[2018-06-28] MEDS: MOTRIN PO SCH ×3 (09:24→17:31)
[2018-06-28 09:43] LABS: HEMATOCRIT 29.6 % (37.0-47.0); HEMOGLOBIN 9.5 g/dL (12.0-16.0); IMM GRAN# 0.03 X1000 (0.0-0.04); IMM GRAN% 0.2 % (0.0-0.5); LYMPH# 1.55 X1000 (1.2-3.4); LYMPH% 10.1 % (20.5-51.1); MCH 27.2 PG (27-31); MCHC 32.1 g/dL (33-37); MCV 84.8 FL (81-99); MONO% 7.8 % (1.7-9.3); MPV 11.1 FL (7.4-10.4); NEUT# 12.63 X1000 (1.4-6.5); NEUT% 81.9 % (42.2-75.2); PLT 206 X1000 (130-400); RBC 3.49 XMIL (4.2-5.4); RDW 13.2 % (11.5-14.5); WBC 15.41 X1000 (4.8-10.8)
[2018-06-28] MEDS: PERCOCET-5 PO PRN ×2 (17:31→20:40)
[2018-06-28 20:04] LABS: BASO# 0.01 X1000 (0.0-0.2); BASO% 0.1 % (0.0-0.8); EOS# 0.03 X1000 (0.0-0.7); EOS% 0.2 % (0.0-10.0); HEMATOCRIT 27.4 % (37.0-47.0); HEMOGLOBIN 8.7 g/dL (12.0-16.0); IMM GRAN# 0.02 X1000 (0.0-0.04); IMM GRAN% 0.2 % (0.0-0.5); LYMPH# 2.05 X1000 (1.2-3.4); LYMPH% 16.4 % (20.5-51.1); MCHC 31.8 g/dL (33-37); MCV 85.1 FL (81-99); MONO# 0.72 X1000 (0.11-0.59); MONO% 5.8 % (1.7-9.3); MPV 11.4 FL (7.4-10.4); NEUT# 9.66 X1000 (1.4-6.5); NEUT% 77.3 % (42.2-75.2); PLT 196 X1000 (130-400); RBC 3.22 XMIL (4.2-5.4); RDW 13.3 % (11.5-14.5); WBC 12.49 X1000 (4.8-10.8)
[2018-06-28] MEDS ORDERED: SENOKOT PO ONE (20:49)
[2018-06-28] MEDS ORDERED: MYLICON PO SCH (21:00)
[2018-06-28] MEDS ORDERED: LR 1,000 ML IV SCH (21:00)
--- NOTE | 2018-06-28 21:57 | OB/GYN PROGRESS NOTE ---
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 Progress Note: Vital Signs - 24 hr 06/27/18 22:00 06/27/18 22:30 06/27/18 23:00 Temperature Pulse Rate 82 78 93 H Respiratory Rate Blood Pressure 107/53 112/56 121/73 O2 Sat by Pulse Oximetry 98 98 97 06/28/18 00:00 06/28/18 01:00 06/28/18 02:00 Temperature Pulse Rate 75 86 68 Respiratory Rate Blood Pressure 115/60 112/62 112/55 O2 Sat by Pulse Oximetry 95 100 100 06/28/18 03:00 06/28/18 07:41 06/28/18 08:12 Temperature 98.2 F 98.5 F Pulse Rate 68 82 85 Respiratory Rate 12 16 16 Blood Pressure 112/55 126/73 O2 Sat by Pulse Oximetry 100 100 100 06/28/18 11:43 06/28/18 11:52 06/28/18 15:28 Temperature 98.1 F 98.7 F Pulse Rate 106 H 105 H 114 H Respiratory Rate 16 18 Blood Pressure 120/64 122/59 O2 Sat by Pulse Oximetry 100 100 100 06/28/18 16:45 06/28/18 20:55 06/28/18 21:09 Temperature 97.8 F Pulse Rate 102 H 123 H 112 H Respiratory Rate 17 22 Blood Pressure 135/71 O2 Sat by Pulse Oximetry 100 99 Bedside Urine ED: Urine Bedside Start: 06/26/18 23:08 Freq: ORDERED Status: Complete Protocol: Activity Type Activity Date Activity User E-Sign Co-Sign Detail Recorded Client Recorded Date Recorded By Document 06/26/18 23:53 [id number] 06/26/18 23:53 [id number] Edit Status 06/27/18 04:12 CRREESE Active=>Complete [id number] 06/27/18 04:12 [id number] 06/26/18 23:53 Point of Care [Bedside Point of Care] -Lot # [id number] - Results Negative -Control Line Visible? Yes Laboratory Results - last 24 hr 06/27/18 06/28/18 06/28/18 02:25 09:21 19:54 WBC 15.41 H 12.49 H RBC 3.49 L 3.22 L Hgb 9.5 L 8.7 L Hct 29.6 L 27.4 L MCV 84.8 85.1 MCH 27.2 27.0 MCHC 32.1 L 31.8 L RDW Std Deviation 13.2 13.3 Plt Count 206 196 MPV 11.1 H 11.4 H Immature Gran % (Auto) 0.2 0.2 Neut % (Auto) 81.9 H 77.3 H Lymph % (Auto) 10.1 L 16.4 L [place] % (Auto) 7.8 5.8 Eos % (Auto) 0.0 0.2 Baso % (Auto) 0.0 0.1 Immature Gran # (Auto) 0.03 0.02 Neut # (Auto) 12.63 H 9.66 H Lymph # (Auto) 1.55 2.05 [place] # (Auto) 1.20 H 0.72 H Eos # (Auto) 0.00 0.03 Baso # (Auto) 0.00 0.01 Blood Type A NEGATIVE Antibody Screen NEGATIVE Crossmatch See Detail BRIM CURLER PM PROGRESS NOTE Patient again evaluated. She stated she walked twice and noted severe lower abdominal pain after ambulating. She last took Percocet several hours ago. She is voiding without difficulty and is tolerating PO intake without N/V. She has passed minimal flatus. Vital signs as above General: Patient appears uncomfortable Abdomen: Clean bandage removed and slight area of redness inferior to the left aspect of the incision. Ana in place and incision is well approximated witho ut any drainage or bleeding. Abdomen tender to palpation diffusely. Intake: 436mL Labs as above Assessment: 22yo G0 admitted with hemoperitoneum who is POD #1 s/p ex lap, EBL 1200 mL, with postop pain, tachycardia, anemia Plan: - H&H dropped from 9.5 to 8.7 over ten hours. Will repeat CBC at 4 hours as tachycardia and anemia are symptoms of concern. Of note, patient had tachycardia on presentation to ER secondary to pain and was in pain when at time of evaluation at 2055 set of vitals. Will aslo restart IVF as patient might also be dehydrated due to poor PO intake. - Requested RN give patient's Percocet tablet now as she had only received one tablet on her last dose. - Start Simethicone and Colace
[2018-06-29 00:03] LABS: BASO# 0.01 X1000 (0.0-0.2); BASO% 0.1 % (0.0-0.8); EOS# 0.02 X1000 (0.0-0.7); EOS% 0.2 % (0.0-10.0); HEMATOCRIT 25.2 % (37.0-47.0); IMM GRAN# 0.02 X1000 (0.0-0.04); IMM GRAN% 0.2 % (0.0-0.5); LYMPH# 1.93 X1000 (1.2-3.4); LYMPH% 17.2 % (20.5-51.1); MCH 26.8 PG (27-31); MCHC 31.7 g/dL (33-37); MCV 84.6 FL (81-99); MONO# 0.76 X1000 (0.11-0.59); MONO% 6.8 % (1.7-9.3); MPV 11.2 FL (7.4-10.4); NEUT# 8.48 X1000 (1.4-6.5); NEUT% 75.5 % (42.2-75.2); PLT 172 X1000 (130-400); RBC 2.98 XMIL (4.2-5.4); RDW 13.3 % (11.5-14.5); WBC 11.22 X1000 (4.8-10.8)
[2018-06-29] MEDS: PERCOCET-5 PO PRN ×5 (00:11→15:30)
[2018-06-29] MEDS: LR 1,000 ML IV SCH ×2 (01:08→15:29)
--- NOTE | 2018-06-29 01:20 | OB/GYN PROGRESS NOTE ---
Progress Note [facility] - . Patient Problems: Current Active Problems Problem Status Onset Abdominal pain Acute Leukocytosis Acute Pelvic pain Acute Urinary tract infection Acute Hemoperitoneum Acute [facility] Progress Note: Vital Signs - 24 hr 06/28/18 02:00 06/28/18 03:00 06/28/18 07:41 Temperature 98.2 F 98.5 F Pulse Rate 68 68 82 Respiratory Rate 12 16 Blood Pressure 112/55 112/55 126/73 O2 Sat by Pulse Oximetry 100 100 100 06/28/18 08:12 06/28/18 11:43 06/28/18 11:52 Temperature 98.1 F Pulse Rate 85 106 H 105 H Respiratory Rate 16 16 Blood Pressure 120/64 O2 Sat by Pulse Oximetry 100 100 100 06/28/18 15:28 06/28/18 16:45 06/28/18 20:55 Temperature 98.7 F Pulse Rate 114 H 102 H 123 H Respiratory Rate 18 17 22 Blood Pressure 122/59 135/71 O2 Sat by Pulse Oximetry 100 100 99 06/28/18 21:09 06/29/18 00:10 Temperature 97.8 F 98.4 F Pulse Rate 112 H 109 H Respiratory Rate 16 Blood Pressure 104/54 O2 Sat by Pulse Oximetry 99 Bedside Urine ED: Urine Bedside Start: 06/26/18 23:08 Freq: ORDERED Status: Complete Protocol: Activity Type Activity Date Activity User E-Sign Co-Sign Detail Recorded Client Recorded Date Recorded By Document 06/26/18 23:53 [id number] 06/26/18 23:53 [id number] Edit Status 06/27/18 04:12 CRREESE Active=>Complete [id number] 06/27/18 04:12 [id number] 06/26/18 23:53 Point of Care [Bedside Point of Care] -Lot # [id number] - Results Negative -Control Line Visible? Yes Laboratory Results - last 24 hr 06/28/18 06/28/18 06/28/18 09:21 19:54 23:39 WBC 15.41 H 12.49 H 11.22 H RBC 3.49 L 3.22 L 2.98 L Hgb 9.5 L 8.7 L 8.0 L Hct 29.6 L 27.4 L 25.2 L MCV 84.8 85.1 84.6 MCH 27.2 27.0 26.8 L MCHC 32.1 L 31.8 L 31.7 L RDW Std Deviation 13.2 13.3 13.3 Plt Count 206 196 172 MPV 11.1 H 11.4 H 11.2 H Immature Gran % (Auto) 0.2 0.2 0.2 Neut % (Auto) 81.9 H 77.3 H 75.5 H Lymph % (Auto) 10.1 L 16.4 L 17.2 L [place] % (Auto) 7.8 5.8 6.8 Eos % (Auto) 0.0 0.2 0.2 Baso % (Auto) 0.0 0.1 0.1 Immature Gran # (Auto) 0.03 0.02 0.02 Neut # (Auto) 12.63 H 9.66 H 8.48 H Lymph # (Auto) 1.55 2.05 1.93 [place] # (Auto) 1.20 H 0.72 H 0.76 H Eos # (Auto) 0.00 0.03 0.02 Baso # (Auto) 0.00 0.01 0.01 Repeat CBC noted to decrease hemoglobin down to 8.0. Patient still tachycardic, BP stable. Will repeat CT A/P to ensure no reaccumulation of hemoperitoneum.
[2018-06-29 04:12] LABS: BASO# 0.01 X1000 (0.0-0.2); BASO% 0.1 % (0.0-0.8); EOS# 0.03 X1000 (0.0-0.7); EOS% 0.3 % (0.0-10.0); HEMATOCRIT 24.4 % (37.0-47.0); HEMOGLOBIN 7.8 g/dL (12.0-16.0); IMM GRAN# 0.02 X1000 (0.0-0.04); IMM GRAN% 0.2 % (0.0-0.5); LYMPH# 1.93 X1000 (1.2-3.4); LYMPH% 20.4 % (20.5-51.1); MCH 27.1 PG (27-31); MCV 84.7 FL (81-99); MONO% 7.4 % (1.7-9.3); MPV 11.1 FL (7.4-10.4); NEUT# 6.79 X1000 (1.4-6.5); NEUT% 71.6 % (42.2-75.2); PLT 159 X1000 (130-400); RBC 2.88 XMIL (4.2-5.4); RDW 13.4 % (11.5-14.5); WBC 9.48 X1000 (4.8-10.8)
[2018-06-29] MEDS: ZOFRAN ODT PO PRN ×2 (05:02→23:10)
--- NOTE | 2018-06-29 07:30 | Diag Imaging Result Doc PS360 ---
EXAM: CT ABD/PELVIS W/IV CONT ONLY 06/29/2018 HISTORY: Decreasing hemoglobin TECHNIQUE: This exam was performed using automated exposure control, adjustment of mA or kV according to patient size, and/or use of iterative reconstruction technique. COMMENT: The current examination is compared with the previous study of 06/27/2018. There is bibasilar opacity in the posterior costophrenic sulci which was not the case on the previous study. There is a small left pleural effusion and an even smaller right pleural effusion. The peritoneal fluid present on the previous examination has nearly completely resolved. Given the CT density on the previous examination (over 28 Hounsfield units) and the current CT density of over 13 Hounsfield units, this probably contains some blood. There is soft tissue emphysema present in the subcutaneous fat around the umbilicus and anterior to the abdominal and pelvic musculature as well as within the fascia of the external oblique muscles inferiorly bilaterally. There is some intraperitoneal gas present in the pelvis and deep to the umbilicus. This is presumably postsurgical. There is gas in the colon and some stool. The small bowel is not distended. There is no evidence of abdominal aortic aneurysm. The gallbladder is unremarkable. The spleen is not enlarged. The adrenal glands are not enlarged. The kidneys are without evidence of hydronephrosis or mass. The pancreas is unremarkable. There is no evidence of significant adenopathy. Pelvis: The clots present throughout much of the pelvis on the previous examination are no longer visible. There is a small amount of residual free fluid. The appendix is not clearly identifiable. There is gas along the pelvic sidewalls and particularly anteriorly between the urinary bladder and the anterior pelvic wall also around the right external iliac vessels. There is some gas and stool in the rectum. The urinary bladder is not particularly distended. The uterus is more distinctly visible. There is some apparent fluid or endometrial thickening in the uterus. There are no apparent adnexal masses. The regional skeleton is intact and stable in appearance. IMPRESSION: Bibasilar atelectasis. Minimal pleural effusions. Postsurgical changes with soft tissue emphysema and minimal pneumoperitoneum. Markedly improved hemoperitoneum. Electronically signed by Lobo Garg 06/29/2018 7:28 AM
--- NOTE | 2018-06-29 08:17 | EKG Report ---
Test Performed on : 06/26/2018 11:03:15 PM Test Reason : tachycardia Blood Pressure : / mmHG Vent. Rate : 143 BPM Atrial Rate : 143 BPM P-R Int : 116 ms QRS Dur : 072 ms QT Int : 286 ms P-R-T Axes : 090 094 054 degrees QTc Int : 441 ms Suspect arm lead reversal, interpretation assumes no reversal Sinus tachycardia. Possible Left atrial enlargement Rightward axis Nonspecific ST abnormality Abnormal ECG No previous ECGs available Unconfirmed Result
[2018-06-29] MEDS: MOTRIN PO SCH ×4 (09:31→23:10)
[2018-06-29] MEDS: FERROUS SULFATE PO SCH (09:32)
[2018-06-29 11:34] LABS: BASO# 0.01 X1000 (0.0-0.2); BASO% 0.1 % (0.0-0.8); EOS# 0.07 X1000 (0.0-0.7); EOS% 0.8 % (0.0-10.0); HEMATOCRIT 25.8 % (37.0-47.0); HEMOGLOBIN 8.2 g/dL (12.0-16.0); LYMPH# 2.35 X1000 (1.2-3.4); LYMPH% 26.3 % (20.5-51.1); MCH 27.2 PG (27-31); MCHC 31.8 g/dL (33-37); MCV 85.7 FL (81-99); MONO# 0.69 X1000 (0.11-0.59); MONO% 7.7 % (1.7-9.3); MPV 11.4 FL (7.4-10.4); NEUT# 5.83 X1000 (1.4-6.5); NEUT% 65.1 % (42.2-75.2); PLT 173 X1000 (130-400); RBC 3.01 XMIL (4.2-5.4); RDW 13.6 % (11.5-14.5); WBC 8.95 X1000 (4.8-10.8)
--- NOTE | 2018-06-29 17:39 | PROGRESS NOTE ---
DATE: 06/29/2018 SUBJECTIVE: Ms. Castellanos's hematocrit remains stable. She is looking better clinically daily. She is tolerating a diet. She remains sore, but she is moving around better. OBJECTIVE: Vital Signs: Her heart rate is 88, blood pressure 116/68, O2 saturation 100%. She is afebrile. She is eating about 50-75% of her meals. Her urine output is good. Her white blood cell count is normal. Hematocrit is 26%. PLAN: Per Senior Quality Control Inspector. cc: MD Megan Birmingham MD
[2018-06-30] MEDS: LR 1,000 ML IV SCH (05:01)
[2018-06-30] MEDS: PERCOCET-5 PO PRN (05:01)
[2018-06-30 07:27] VITALS: BP 116/66
[2018-06-30] MEDS: MOTRIN PO SCH (09:39)
[2018-06-30] MEDS: FERROUS SULFATE PO SCH (09:39)
--- NOTE | 2018-06-30 12:45 | DISCHARGE SUMMARY ---
ADMISSION DATE: 06/27/2018 DISCHARGE DATE: 06/30/2018 ADMISSION DIAGNOSIS: Acute lower abdominal pain and hemoperitoneum. POSTOPERATIVE DIAGNOSIS: Acute lower abdominal pain and hemoperitoneum. PROCEDURES: Diagnostic laparoscopy and exploratory laparotomy with evacuation of hemoperitoneum. CONSULTATIONS: Dr. Иван Stevens which was a intraoperative consult. BRIEF HISTORY: The patient 22-year-old white female, who presents to the ER with complaints of lower abdominal pain. It has been occurring since 4:30 in the morning on 06/26/2018. Onset was after patient and her partner having intercourse. The pain worsened over the course of the day and would become worse while riding in a car and hitting bumps. No nausea or vomiting, chills, constipation or diarrhea and pain is worse upon lying flat. 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 Denies any history of sexually transmitted diseases. PAST MEDICAL HISTORY: Significant for mild Arnold Chiari malformation. Has a history of mild asthma not requiring hospitalization and not requiring use of albuterol but just a handful of times. SURGICAL HISTORY: Significant for oral history. SOCIAL HISTORY: Denies tobacco, alcohol, or drug use. ALLERGIES: No known drug allergies. MEDICATIONS: Adipex. PHYSICAL EXAMINATION: Vital Signs: Temp 98.5 degrees, pulse of 145, respirations 24, blood pressure 124/101, heart rate of 95, and respiratory rate is 17. General: The patient appears uncomfortable especially with movement. HEENT: Head normocephalic and atraumatic. Heart: Tachycardic with no murmurs, rubs, or gallops or clicks. Lungs: Clear to auscultation. Abdomen: Soft, tender to palpation. Worse on the left side than on the right. Normoactive bowel sounds. Pelvis: No pain with manipulation of the ultrasound vaginal probe. Extremities: No clubbing, cyanosis, or edema noted. LAB STUDIES: [place] [address]386, hemoglobin was 11.5, hematocrit 34.9, platelet count 368,000, creatinine was 1.0. Urine test was negative. A repeat CBC showed a decrease in hemoglobin to 10.5 and hematocrit 32.2. IMAGING STUDIES: The CT scan showed acute hemoperitoneum in the pelvis of uncertain etiology. Ultrasound shows debris measuring 12 x 5 x 6 cm. The patient is admitted for pain management and IV fluids and repeat lab studies, and the patient was instructed that she may need surgery and was counseled about the risks of surgery. HOSPITAL COURSE: The patient had a continued drop in her hemoglobin as well as her pain status was increasing and felt at this time it was pertinent to move to the operating room where a diagnostic laparoscopy was performed and showed hemoperitoneum. Was difficult to assess the pelvic organs due to so much blood so laparoscopy was discontinued and then an exploratory laparotomy was performed, and this revealed about 1200 mL of old blood in the abdomen and inspection of the pelvic cavity did not reveal any significant findings of tubes, ovaries or uterus, although suspicious for possible hemorrhagic ruptured cyst as the culprit, but at the time of operation unable to visualize any source. Due to the unknown source, general surgery consult was obtained intraoperatively. Dr. Stevens came to evaluate any other possible sources of bleeding and was not able to find any. Postoperatively the patient did well, still had pain but was up and mobile. Hemoglobin settled on postop day 2 to 8.2, and her vital signs were stable. She was even advancing her diet, and on postoperative day 3, she was doing well with positive flatus and improved appetite as well. It was felt at this time the patient could be discharged home and we will have her follow up on 07/06/2018 for staple removal. DISCHARGE INSTRUCTIONS: Pelvic rest for 6 weeks, lifting precautions for 6 weeks. Patient to call for any temperature greater than 101 or severe abdominal pain. Patient given instructions on wound care and will return on 07/06/2018 for staple removal. DISCHARGE MEDICATIONS: 1. [place] 7.5, dispensed 20 with no refills. 2. Iron sulfate 325 mg dispensed 30 with 1 refill. 3. Colace 100 mg dispensed 30, 1 p.o. b.i.d. with 1 refill. 4. Motrin 800 mg, dispensed 30 with 1 refill. cc: MD Megan Edmonds III, MD
== END 2018-06-30 10:45 | disposition home or self-care (01) | DRG 357 ==
LOC: SUPCPDRO → ED 22:57 → 4N 06-27 03:42
PROVIDERS: ADMIT Student in an Organized Health Care Education/Training Program; ATTEND Student in an Organized Health Care Education/Training Program
CPT/HCPCS: 36430; 74177; 76830; 80053; 81001; 81025; 83605; 83690; 84702; 84703; 85025; 85384; 85610; 85730; 86850; 86900; 86901; 86920; 87088; 87491; 87591; 93005; 94761; 94799; 96374; 96375; 96376; 99285; A9270; J0131; J0330; J0696; J1100; J1170; J2250; J2270; J2405; J2550; J3010; J7030; J7120; P9016; Q9967; S0028